=== PATIENT | male | born 1950 | race Caucasian/White ===

== ENCOUNTER → 2016-05-13 | Outpatient (CLI) | payer MEDICARE, OTHER ==
[~2016-05-13] MED LIST: ASPI-496 PO; ATOR80TA75 PO; BIOT5TAB PO; CALC-332 PO; CARV12.52 PO; CARV6.252 PO; CLOP75TA22 PO; DIAZ5TAB PO; FISH OIL OMEGA1 EACH PO; FURO-93 PO; GLIP5TAB10 PO; HYDR1TAB14 PO; INSU100I13 SQ-INSULIN; INSU100V8 SQ; ISOS30TA8 PO; LINA5TAB PO; LIRA0.6P SQ; LIRA0.6P2 SQ; METF10002 PO; MULT1TAB60 PO; NIAC10002 PO; NIAC100035 PO; NITR0.4T SL; NITR0.4T8 SL; OLME5TAB4 PO; OMEG1CAP6 PO; ROSU5TAB PO; SILD50TA PO; TRAM50TA2 PO; TRIA1CAP PO; WHEA1POW5 PO
== END | disposition home or self-care (01) ==
LOC: CFH 16:05
PROVIDERS: ATTEND Internal Medicine Cardiovascular Disease
DX: Z95.810 Presence of automatic (implantable) cardiac defibrillator (principal)
CPT/HCPCS: 71020

== ENCOUNTER 2016-05-24 15:29 | Inpatient (IN) | payer MEDICARE, OTHER ==
[~2016-05-24] VITALS: Ht 198.1 cm; Wt 140.9 kg
[2016-05-24] MEDS ORDERED: SODIUM CHLORIDE FLUSH 10ML SYR IVF ONE (16:30)
[2016-05-24 17:09] LABS: ASPARTATE AMINO TRANSFERASE 274 U/L (15-37); BLOOD UREA NITROGEN 24 mg/dL (7-18)
[2016-05-24] MEDS ORDERED: AMLO5TAB2 PO (18:45)
[2016-05-24] MEDS ORDERED: WHEA1POW5 PO (18:49)
[2016-05-24] MEDS ORDERED: INSU100V13 SQ-INSULIN (18:53)
[2016-05-24] MEDS ORDERED: MULT-6 PO (18:53)
[2016-05-24] MEDS ORDERED: NITR0.4T SL (18:55)
[2016-05-24] MEDS ORDERED: LINA5TAB PO (18:56)
[2016-05-24] MEDS ORDERED: HYDR1TAB14 PO (18:58)
[2016-05-24] MEDS ORDERED: INSULIN REGULAR 100 UNITS/ML, 3ML VIAL SQ-INSULIN ONE (20:00)
[2016-05-24] MEDS ORDERED: INSULIN SINGLE DOSE, ER SQ-INSULIN ONE (20:07)
[2016-05-24] MEDS: CARVEDILOL 12.5 MG TABLET PO SCH (23:00)
[2016-05-24] MEDS ORDERED: ONDANSETRON 2MG/ML, 2ML IVP PRN (23:00)
[2016-05-24] MEDS ORDERED: BISACODYL 10 MG SUPP PR PRN (23:00)
[2016-05-24] MEDS ORDERED: POLYETHYLENE GLYCOL 17 GM PACKET PO PRN (23:00)
[2016-05-24] MEDS ORDERED: DIAZEPAM 5 MG TABLET PO PRN (23:00)
[2016-05-24] MEDS ORDERED: ACETAMINOPHEN PO SCH (23:00)
[2016-05-24] MEDS ORDERED: NITROGLYCERIN 0.4 MG BOTTLE (25 TABS) SL PRN (23:00)
[2016-05-24] MEDS ORDERED: OXYcodone IR 5MG TABLET PO PRN (23:00)
[2016-05-24] MEDS ORDERED: HYDROCODONE BIT PO SCH (23:00)
[2016-05-24] MEDS ORDERED: FUROSEMIDE 20 MG TABLET PO PRN (23:00)
[2016-05-24] MEDS ORDERED: [UNRECOGNIZED DRUG - OTHER] PO SCH (23:00)
[2016-05-24] MEDS: TEMPLATE NON-FORMULARY MED. (Liraglutide (Victoza 3-Pak) 1.8 MG) SQ SCH (23:00)
[2016-05-24] MEDS ORDERED: DOCUSATE 100 MG CAPSULE PO PRN (23:00)
[2016-05-24] MEDS ORDERED: MORPHINE SULFATE 4 MG/ML, 1ML IVPush PRN (23:00)
[2016-05-24] MEDS ORDERED: LINAGLIPTIN MC SCH (23:30)
[2016-05-24] MEDS ORDERED: HYDROCODONE MC SCH (23:30)
[2016-05-24] MEDS ORDERED: LIRAGLUTIDE MC SCH (23:30)
[2016-05-24] MEDS ORDERED: ACETAMINOPHEN MC SCH (23:30)
[2016-05-24] MEDS ORDERED: SODIUM CHLORIDE 0.9% 1,000 ML IV SCH (23:30)
[2016-05-25 00:16] VITALS: BP 171/75
[2016-05-25] MEDS ORDERED: CEFTRIAXONE PMX 1GM/50ML 50 ML IV SCH (00:30)
[2016-05-25] MEDS ORDERED: METRONIDAZOLE PMX 500MG/100ML 100 ML IV SCH (00:30)
[2016-05-25] MEDS: INSULIN DETEMIR 100 UNITS/ML, PEN SQ-INSULIN SCH ×2 (00:46→20:59)
[2016-05-25 03:08] VITALS: BP 147/76
[2016-05-25 05:29] LABS: ASPARTATE AMINO TRANSFERASE 279 U/L (15-37); BLOOD UREA NITROGEN 23 mg/dL (7-18)
[2016-05-25 06:50] VITALS: BP 127/69
[2016-05-25] MEDS ORDERED: DEXTROSE 4 GM TAB.CHEW PO PRN (08:00)
[2016-05-25] MEDS ORDERED: DEXTROSE 50%, 50ML SYRINGE IVPush PRN (08:00)
[2016-05-25] MEDS ORDERED: GLUCAGON 1 MG IM PRN (08:00)
[2016-05-25] MEDS: CARVEDILOL 12.5 MG TABLET PO SCH ×2 (08:25→20:56)
[2016-05-25] MEDS: INSULIN ASPART 100 UNITS/ML, PEN SQ-INSULIN SCH ×4 (08:25→20:58)
[2016-05-25] MEDS: OMEGA-3/FISH OIL CAPSULE PO SCH ×2 (08:26→20:56)
[2016-05-25] MEDS: SODIUM CHLORIDE FLUSH 10ML SYR IVF SCH ×2 (08:26→20:59)
[2016-05-25] MEDS: MULTIVITAMIN 1 TABLET PO SCH (08:27)
[2016-05-25] MEDS: NIACIN 500 MG TABLET.ER PO SCH ×2 (08:27→20:56)
[2016-05-25 12:51] VITALS: BP 119/67
[2016-05-25 16:49] LABS: ANA SCREEN POSITIVE (Negative)
[2016-05-25 17:30] VITALS: BP 157/73
[2016-05-25 20:00] VITALS: BP 121/70
[2016-05-25] MEDS: TEMPLATE NON-FORMULARY MED. (Linagliptin** (Tradjenta**) 5 MG) PO SCH (20:59)
[2016-05-25] MEDS: TEMPLATE NON-FORMULARY MED. (Liraglutide (Victoza 3-Pak) 1.8 MG) SQ SCH (21:15)
[2016-05-26 02:00] VITALS: BP 99/59
[2016-05-26 05:19] LABS: ASPARTATE AMINO TRANSFERASE 409 U/L (15-37); BLOOD UREA NITROGEN 20 mg/dL (7-18)
[2016-05-26 07:05] VITALS: BP 108/65
[2016-05-26] MEDS: CARVEDILOL 12.5 MG TABLET PO SCH ×2 (08:28→19:28)
[2016-05-26] MEDS: MULTIVITAMIN 1 TABLET PO SCH (08:28)
[2016-05-26] MEDS: NIACIN 500 MG TABLET.ER PO SCH (08:28)
[2016-05-26] MEDS: OMEGA-3/FISH OIL CAPSULE PO SCH ×2 (08:29→19:29)
[2016-05-26] MEDS: INSULIN ASPART 100 UNITS/ML, PEN SQ-INSULIN SCH ×4 (08:36→19:37)
[2016-05-26] MEDS: SODIUM CHLORIDE FLUSH 10ML SYR IVF SCH ×2 (10:07→19:28)
[2016-05-26 13:09] VITALS: BP 109/68
[2016-05-26] MEDS: TEMPLATE NON-FORMULARY MED. (Liraglutide (Victoza 3-Pak) 1.8 MG) SQ SCH (19:29)
[2016-05-26] MEDS: INSULIN DETEMIR 100 UNITS/ML, PEN SQ-INSULIN SCH (19:36)
[2016-05-26] MEDS: TEMPLATE NON-FORMULARY MED. (Linagliptin** (Tradjenta**) 5 MG) PO SCH (19:39)
[2016-05-26 20:00] VITALS: BP 117/65
[2016-05-27 01:30] VITALS: BP 123/57
[2016-05-27 05:11] LABS: ASPARTATE AMINO TRANSFERASE 275 U/L (15-37); BLOOD UREA NITROGEN 20 mg/dL (7-18)
[2016-05-27 07:41] VITALS: BP 112/65
[2016-05-27] MEDS: MULTIVITAMIN 1 TABLET PO SCH (08:18)
[2016-05-27] MEDS: CARVEDILOL 12.5 MG TABLET PO SCH (08:18)
[2016-05-27] MEDS: SODIUM CHLORIDE FLUSH 10ML SYR IVF SCH (08:19)
[2016-05-27] MEDS: OMEGA-3/FISH OIL CAPSULE PO SCH (08:20)
[2016-05-27] MEDS: INSULIN ASPART 100 UNITS/ML, PEN SQ-INSULIN SCH ×3 (08:22→16:00)
[2016-05-27 12:06] LABS: ENDOMYSIAL IGA Negative (Negative); IMMUNOGLOBULIN A 370 mg/dL (61-437)
[2016-05-27 14:29] VITALS: BP 118/70
== END 2016-05-27 17:30 | disposition home or self-care (01) | DRG 604 ==
LOC: ED 20:22 → EDIP 21:44 → 3NW 23:22 → DCLOUNGE 05-27 17:19
PROVIDERS: ADMIT Internal Medicine; ATTEND Internal Medicine
PROC: 0T9B70Z Drainage of Bladder with Drainage Device, Via Natural or Artificial Opening (ICD-10-PCS; principal; 2016-05-24)
DX: S30.1XXA Contusion of abdominal wall, initial encounter (principal); N17.0 Acute kidney failure with tubular necrosis; E44.0 Moderate protein-calorie malnutrition; E87.1 Hypo-osmolality and hyponatremia; D62 Acute posthemorrhagic anemia; I13.0 Hypertensive heart and chronic kidney disease with heart failure and stage 1 through stage 4 chronic kidney disease, or unspecified chronic kidney disease; I50.22 Chronic systolic (congestive) heart failure; Z68.34 Body mass index [BMI] 34.0-34.9, adult; N18.3 Chronic kidney disease, stage 3 (moderate); K75.9 Inflammatory liver disease, unspecified; K76.0 Fatty (change of) liver, not elsewhere classified; I25.5 Ischemic cardiomyopathy; D63.8 Anemia in other chronic diseases classified elsewhere; E11.22 Type 2 diabetes mellitus with diabetic chronic kidney disease; E11.65 Type 2 diabetes mellitus with hyperglycemia; E66.9 Obesity, unspecified; E78.5 Hyperlipidemia, unspecified; G47.33 Obstructive sleep apnea (adult) (pediatric); I25.10 Atherosclerotic heart disease of native coronary artery without angina pectoris; I35.0 Nonrheumatic aortic (valve) stenosis; N40.0 Benign prostatic hyperplasia without lower urinary tract symptoms; Z79.4 Long term (current) use of insulin; Z79.82 Long term (current) use of aspirin; Z85.51 Personal history of malignant neoplasm of bladder; Z86.010 Personal history of colon polyps; Z86.74 Personal history of sudden cardiac arrest; Z87.891 Personal history of nicotine dependence; Z90.49 Acquired absence of other specified parts of digestive tract; Z95.0 Presence of cardiac pacemaker; Z95.2 Presence of prosthetic heart valve; Z68.35 Body mass index [BMI] 35.0-35.9, adult; Z88.8 Allergy status to other drugs, medicaments and biological substances
CPT/HCPCS: 36415; 71010; 74176; 76700; 80053; 80061; 81001; 82103; 82390; 82728; 82784; 82962; 83036; 83516; 83690; 83735; 84439; 84443; 85025; 85610; 85730; 86038; 86039; 86255; 86704; 86706; 86708; 86803; 87040; 87086; 87340; 99285; J1815; J7030

== ENCOUNTER 2016-06-22 10:23 | Emergency (ER) | payer MEDICARE, OTHER ==
[~2016-06-22] VITALS: Ht 198.1 cm; Wt 133.4 kg
[~2016-06-22 10:23] MED LIST changes: +AMLO5TAB2 PO; +INSU100V13 SQ-INSULIN; +MULT-6 PO
[2016-06-22] MEDS ORDERED: SODIUM CHLORIDE 0.9% 1,000 ML IV ONE (12:19)
[2016-06-22] MEDS ORDERED: SODIUM CHLORIDE FLUSH 10ML SYR IVF ONE (12:30)
[2016-06-22] MEDS ORDERED: HYDROmorphone 1 MG/ML, 1ML IVPush PRN (12:30)
[2016-06-22] MEDS ORDERED: ONDANSETRON 2MG/ML, 2ML IVPush ONE (12:30)
[2016-06-22] MEDS ORDERED: SODIUM CHLORIDE 0.9% 1,000ML IVBOLUS ONE (12:30)
[2016-06-22] MEDS ORDERED: ONDANSETRON 2MG/ML, 2ML ONE (12:59)
[2016-06-22] MEDS ORDERED: HYDROmorphone 1 MG/ML, 1ML ONE (12:59)
[2016-06-22 13:37] LABS: ASPARTATE AMINO TRANSFERASE 35 U/L (15-37); BLOOD UREA NITROGEN 17 mg/dL (7-18)
[2016-06-22] MEDS ORDERED: ATOR80TA PO (13:55)
[2016-06-22] MEDS ORDERED: ASPI-770 PO (13:55)
[2016-06-22] MEDS ORDERED: AMOX500T PO (13:55)
[2016-06-22] MEDS ORDERED: NIAC500T4 PO (14:06)
[2016-06-22] MEDS ORDERED: OMNIPAQUE 350 MG/ML, 100ML BOTTLE ONE (16:53)
[2016-06-22 18:31] VITALS: BP 152/83
== END 2016-06-22 18:33 | disposition home or self-care (01) ==
LOC: ED 15:34
DX: S30.1XXA Contusion of abdominal wall, initial encounter (principal); E11.9 Type 2 diabetes mellitus without complications; I25.810 Atherosclerosis of coronary artery bypass graft(s) without angina pectoris; I50.9 Heart failure, unspecified; X58.XXXA Exposure to other specified factors, initial encounter; Y93.89 Activity, other specified; Y92.89 Other specified places as the place of occurrence of the external cause; Y99.9 Unspecified external cause status
CPT/HCPCS: 36415; 74177; 80053; 83605; 83690; 84145; 85025; 85610; 87040; 93005; 96361; 96374; 96375; 99285; J1170; J2405; J7030; Q9967

== ENCOUNTER → 2016-11-01 | Outpatient (CLI) | payer MEDICARE, OTHER ==
[~2016-11-01] MED LIST changes: +AMOX500T PO; +ASPI-770 PO; +ATOR-2 PO; +ATOR80TA PO; -ATOR80TA75 PO; -CLOP75TA22 PO; +CLOP75TA52 PO; +NIAC500T4 PO; +NITR0.4T28 SL; -NITR0.4T8 SL
== END | disposition home or self-care (01) ==
LOC: CVU 12:46
PROVIDERS: ATTEND Internal Medicine Cardiovascular Disease
DX: I34.0 Nonrheumatic mitral (valve) insufficiency (principal); I34.8 Other nonrheumatic mitral valve disorders; I51.7 Cardiomegaly; I65.23 Occlusion and stenosis of bilateral carotid arteries; I10 Essential (primary) hypertension; I25.2 Old myocardial infarction; E11.9 Type 2 diabetes mellitus without complications; G47.33 Obstructive sleep apnea (adult) (pediatric); E78.5 Hyperlipidemia, unspecified; Z95.0 Presence of cardiac pacemaker; Z95.2 Presence of prosthetic heart valve; Z95.1 Presence of aortocoronary bypass graft; Z87.891 Personal history of nicotine dependence; Z85.51 Personal history of malignant neoplasm of bladder; Z86.74 Personal history of sudden cardiac arrest; Z98.890 Other specified postprocedural states
CPT/HCPCS: 93306; 93880

== ENCOUNTER → 2017-06-10 | Outpatient (CLI) | payer MEDICARE, OTHER ==
[~2017-06-10] MED LIST changes: -ASPI-770 PO; +ASPI81TA59 PO
== END ==
LOC: CFH 10:30
PROVIDERS: ATTEND Urology
DX: N18.9 Chronic kidney disease, unspecified (principal)
CPT/HCPCS: 76770

== ENCOUNTER 2017-08-05 19:38 | Inpatient (IN) | payer MEDICARE ==
[~2017-08-05] VITALS: Ht 198.1 cm; Wt 137.4 kg
[2017-08-05] MEDS ORDERED: FURO-93 PO (20:12)
[2017-08-05] MEDS ORDERED: FISH OIL (20:12)
[2017-08-05] MEDS ORDERED: MATURE MULTIVITAMIN (20:12)
[2017-08-05] MEDS ORDERED: INVANZ IV (20:12)
[2017-08-05] MEDS ORDERED: ATOR80TA PO (20:12)
[2017-08-05] MEDS ORDERED: LINA5TAB PO (20:12)
[2017-08-05] MEDS ORDERED: NITR0.4T SL (20:12)
[2017-08-05] MEDS ORDERED: DIAZ5TAB PO (20:12)
[2017-08-05] MEDS ORDERED: GLIP5TAB10 PO (20:12)
[2017-08-05] MEDS ORDERED: BIOT5CAP3 PO (20:12)
[2017-08-05] MEDS ORDERED: NIACIN (20:12)
[2017-08-05] MEDS ORDERED: LEVEMIR SQ (20:12)
[2017-08-05] MEDS ORDERED: CARV6.252 PO (20:12)
[2017-08-05] MEDS ORDERED: PROBIOTIC (20:12)
[2017-08-05] MEDS ORDERED: BENEFIBER (20:12)
[2017-08-05] MEDS ORDERED: RIVA15TA PO (20:13)
[2017-08-05] MEDS ORDERED: HYDR1TAB14 PO (20:13)
[2017-08-05] MEDS ORDERED: VICTOZA SQ (20:13)
[2017-08-05] MEDS ORDERED: SILD50TA PO (20:13)
[2017-08-05 20:24] LABS: BASOPHILS # (AUTO) 0.01 x10^3/uL (0-0.1); BASOPHILS % (AUTO) 0 % (0-1); EOSINOPHILS # (AUTO) 0.15 x10^3/uL (0-0.4); EOSINOPHILS % (AUTO) 4 % (1-7); LYMPHOCYTES % (AUTO) 40 % (22-44); MD NO; MEAN CORPUSCULAR HEMOGLOBIN 30.9 pg (27.5-34.5); MEAN CORPUSCULAR HGB CONC 33.5 g/dL (33.2-36.2); MEAN CORPUSCULAR VOLUME 92.2 fL (81-97); MEAN PLATELET VOLUME 7.1 fL (7.4-10.4); MONOCYTES # (AUTO) 0.34 x10^3/uL (0.2-0.8); MONOCYTES % (AUTO) 9 % (2-9); NEUTROPHILS # (AUTO) 1.73 x10^3/uL (1.8-6.8); NEUTROPHILS % (AUTO) 46 % (42-75); PLATELET COUNT 124 x10^3/uL (130-400); RED BLOOD COUNT 4.53 x10^6/uL (4.38-5.82); RED CELL DISTRIBUTION WIDTH 13.3 % (9.4-14.8)
[2017-08-05 20:36] LABS: ANION GAP 6 mmol/L (5-15); CALCIUM 8.3 mg/dL (8.5-10.1); CHLORIDE 107 mmol/L (98-107); INTERNATIONAL NORMALIZED RATIO 1.31 (0.93-1.1); PROTHROMBIN TIME 13.4 Seconds (9.6-11.5)
[2017-08-05] MEDS ORDERED: DIAZEPAM 5 MG TABLET PO PRN (21:00)
[2017-08-05] MEDS ORDERED: DOCUSATE 100 MG CAPSULE PO PRN (21:00)
[2017-08-05] MEDS ORDERED: TEMAZEPAM 15 MG CAPSULE PO PRN (21:00)
[2017-08-05] MEDS ORDERED: ACETAMINOPHEN 325 MG TABLET PO PRN (21:00)
[2017-08-05] MEDS ORDERED: ONDANSETRON 2MG/ML, 2ML IVPush PRN (21:00)
[2017-08-05] MEDS ORDERED: ERTAPENEM 1 GM in SODIUM CHLORIDE 0.9% 50 ML IV SCH (21:00)
[2017-08-05] MEDS: ERTAPENEM 1 GM in SODIUM CHLORIDE 0.9% 50 ML IV SCH (21:35)
[2017-08-05 22:01] VITALS: BP 125/66
[2017-08-06] MEDS: CARVEDILOL 6.25 MG TABLET PO SCH ×3 (00:21→20:43)
[2017-08-06] MEDS: ATORVASTATIN 80 MG TABLET PO SCH ×2 (00:21→20:44)
[2017-08-06] MEDS: LINAGLIPTIN 5 MG TAB PO SCH ×2 (00:21→20:43)
[2017-08-06] MEDS: ENOXAPARIN 150 MG/ML SQ SCH ×3 (00:22→20:53)
[2017-08-06 01:39] VITALS: BP 94/47
[2017-08-06 07:18] VITALS: BP 106/61
[2017-08-06] MEDS: ASPIRIN 81 MG TABLET CHEW PO SCH (07:21)
[2017-08-06] MEDS: FUROSEMIDE 20 MG TABLET PO SCH (07:21)
[2017-08-06] MEDS: INSULIN LISPRO 100 UNITS/ML, PEN SQ-INSULIN SCH ×4 (08:05→20:46)
[2017-08-06 16:00] VITALS: BP 124/76
[2017-08-06] MEDS ORDERED: OMNIPAQUE 350 MG/ML, 100ML BOTTLE ONE (16:33)
[2017-08-06 19:20] VITALS: BP 97/60
[2017-08-06 20:40] VITALS: BP 117/63
[2017-08-06] MEDS: ERTAPENEM 1 GM in SODIUM CHLORIDE 0.9% 50 ML IV SCH (20:46)
[2017-08-07 02:51] VITALS: BP 100/62
[2017-08-07 04:50] LABS: MEAN CORPUSCULAR HEMOGLOBIN 30.8 pg (27.5-34.5); MEAN CORPUSCULAR HGB CONC 33.3 g/dL (33.2-36.2); MEAN CORPUSCULAR VOLUME 92.6 fL (81-97); MEAN PLATELET VOLUME 7.4 fL (7.4-10.4); PLATELET COUNT 112 x10^3/uL (130-400); RED BLOOD COUNT 4.25 x10^6/uL (4.38-5.82); RED CELL DISTRIBUTION WIDTH 13.3 % (9.4-14.8)
[2017-08-07 04:51] LABS: ANION GAP 4 mmol/L (5-15); CALCIUM 8.3 mg/dL (8.5-10.1); CHLORIDE 107 mmol/L (98-107); CREATININE 1.36 mg/dL (0.7-1.3)
[2017-08-07 05:59] LABS: BASOPHILS # (AUTO) 0.01 x10^3/uL (0-0.1); BASOPHILS % (AUTO) 0 % (0-1); EOSINOPHILS # (AUTO) 0.13 x10^3/uL (0-0.4); EOSINOPHILS % (AUTO) 5 % (1-7); LYMPHOCYTES # (AUTO) 1.13 x10^3/uL (1-3.4); LYMPHOCYTES % (AUTO) 47 % (22-44); MD SCAN; MONOCYTES # (AUTO) 0.25 x10^3/uL (0.2-0.8); MONOCYTES % (AUTO) 10 % (2-9); NEUTROPHILS # (AUTO) 0.92 x10^3/uL (1.8-6.8); NEUTROPHILS % (AUTO) 38 % (42-75)
[2017-08-07] MEDS: ENOXAPARIN 150 MG/ML SQ SCH (08:00)
[2017-08-07] MEDS: INSULIN LISPRO 100 UNITS/ML, PEN SQ-INSULIN SCH ×4 (08:00→21:07)
[2017-08-07] MEDS: CARVEDILOL 6.25 MG TABLET PO SCH ×2 (08:01→21:06)
[2017-08-07] MEDS: ASPIRIN 81 MG TABLET CHEW PO SCH (08:01)
[2017-08-07] MEDS: FUROSEMIDE 20 MG TABLET PO SCH (08:01)
[2017-08-07 08:59] VITALS: BP 108/65
[2017-08-07 12:54] VITALS: BP 98/66
[2017-08-07] MEDS: RIVAROXABAN 15 MG TABLET PO SCH (16:38)
[2017-08-07 19:25] VITALS: BP 99/64
[2017-08-07] MEDS: ERTAPENEM 1 GM in SODIUM CHLORIDE 0.9% 50 ML IV SCH (21:00)
[2017-08-07] MEDS: LINAGLIPTIN 5 MG TAB PO SCH (21:06)
[2017-08-07] MEDS: ATORVASTATIN 80 MG TABLET PO SCH (21:06)
[2017-08-08 03:36] VITALS: BP 121/71
[2017-08-08 05:06] LABS: ALANINE AMINOTRANSFERASE 56 U/L (12-78); ALBUMIN 2.3 g/dL (3.4-5.0); ANION GAP 8 mmol/L (5-15); CHLORIDE 106 mmol/L (98-107); CREATININE 1.25 mg/dL (0.7-1.3)
[2017-08-08 05:08] LABS: ALKALINE PHOSPHATASE 176 U/L (45-117); BILIRUBIN,TOTAL 0.7 mg/dL (0.2-1.0); TOTAL PROTEIN 6.2 g/dL (6.4-8.2)
[2017-08-08 05:54] LABS: BASOPHILS % (AUTO) 0 % (0-1); EOSINOPHILS % (AUTO) 4 % (1-7); LYMPHOCYTES # (AUTO) 1.07 x10^3/uL (1-3.4); LYMPHOCYTES % (AUTO) 46 % (22-44); MD SCAN; MEAN CORPUSCULAR HEMOGLOBIN 30.7 pg (27.5-34.5); MEAN CORPUSCULAR HGB CONC 33.2 g/dL (33.2-36.2); MEAN CORPUSCULAR VOLUME 92.7 fL (81-97); MEAN PLATELET VOLUME 7.3 fL (7.4-10.4); MONOCYTES # (AUTO) 0.26 x10^3/uL (0.2-0.8); MONOCYTES % (AUTO) 11 % (2-9); NEUTROPHILS # (AUTO) 0.91 x10^3/uL (1.8-6.8); NEUTROPHILS % (AUTO) 39 % (42-75); PLATELET COUNT 97 x10^3/uL (130-400); RED CELL DISTRIBUTION WIDTH 13.4 % (9.4-14.8)
[2017-08-08] MEDS: INSULIN LISPRO 100 UNITS/ML, PEN SQ-INSULIN SCH ×4 (07:00→21:03)
[2017-08-08 08:00] VITALS: BP 127/78
[2017-08-08] MEDS ORDERED: REGADENOSON 0.4 MG/5 ML SYRINGE ONE (08:18)
[2017-08-08 08:49] LABS: TROPONIN I 0.021 ng/mL (0.000-0.045)
[2017-08-08] MEDS: SENNA/DOCUSATE TABLET PO SCH (09:00)
[2017-08-08] MEDS: ASPIRIN 81 MG TABLET CHEW PO SCH (09:00)
[2017-08-08] MEDS: RIVAROXABAN 15 MG TABLET PO SCH ×2 (11:51→21:02)
[2017-08-08] MEDS: CARVEDILOL 6.25 MG TABLET PO SCH ×2 (11:53→21:02)
[2017-08-08] MEDS: FUROSEMIDE 20 MG TABLET PO SCH (12:06)
[2017-08-08 13:23] VITALS: BP 127/77
[2017-08-08 19:46] VITALS: BP 139/73
[2017-08-08] MEDS: ERTAPENEM 1 GM in SODIUM CHLORIDE 0.9% 50 ML IV SCH (21:00)
[2017-08-08] MEDS: ATORVASTATIN 80 MG TABLET PO SCH (21:02)
[2017-08-08] MEDS: LINAGLIPTIN 5 MG TAB PO SCH (21:02)
[2017-08-09 03:48] VITALS: BP 108/62
[2017-08-09 06:45] LABS: HEMOGLOBIN A1C 10.7 % (4.2-6.3)
[2017-08-09] MEDS: INSULIN LISPRO 100 UNITS/ML, PEN SQ-INSULIN SCH ×4 (07:06→22:10)
[2017-08-09] MEDS: RIVAROXABAN 15 MG TABLET PO SCH (07:06)
[2017-08-09 07:20] VITALS: BP 129/77
[2017-08-09] MEDS: SENNA/DOCUSATE TABLET PO SCH (09:00)
[2017-08-09] MEDS: ASPIRIN 81 MG TABLET CHEW PO SCH (09:00)
[2017-08-09] MEDS: FUROSEMIDE 20 MG TABLET PO SCH (09:00)
[2017-08-09] MEDS: CARVEDILOL 6.25 MG TABLET PO SCH ×2 (10:22→21:51)
[2017-08-09 13:37] VITALS: BP 112/73
[2017-08-09] MEDS ORDERED: RIVAROXABAN 15 MG TABLET PO SCH (17:00)
[2017-08-09 20:00] VITALS: BP 134/86
[2017-08-09] MEDS: ATORVASTATIN 80 MG TABLET PO SCH (21:51)
[2017-08-09] MEDS: LINAGLIPTIN 5 MG TAB PO SCH (21:51)
[2017-08-09] MEDS: INSULIN GLARGINE 100 UNITS/ML, PEN SQ-INSULIN SCH (22:10)
[2017-08-10 02:00] VITALS: BP 110/62
[2017-08-10 04:35] LABS: MEAN CORPUSCULAR HEMOGLOBIN 30.5 pg (27.5-34.5); MEAN CORPUSCULAR HGB CONC 33.2 g/dL (33.2-36.2); MEAN PLATELET VOLUME 7.5 fL (7.4-10.4); PLATELET COUNT 101 x10^3/uL (130-400); RED BLOOD COUNT 4.06 x10^6/uL (4.38-5.82); RED CELL DISTRIBUTION WIDTH 13.2 % (9.4-14.8)
[2017-08-10 04:48] LABS: ALANINE AMINOTRANSFERASE 77 U/L (12-78); ALBUMIN 2.3 g/dL (3.4-5.0); ANION GAP 6 mmol/L (5-15); CALCIUM 7.8 mg/dL (8.5-10.1); CHLORIDE 109 mmol/L (98-107); CREATININE 1.28 mg/dL (0.7-1.3)
[2017-08-10 04:50] LABS: ALKALINE PHOSPHATASE 175 U/L (45-117); BILIRUBIN,TOTAL 0.5 mg/dL (0.2-1.0); TOTAL PROTEIN 6.5 g/dL (6.4-8.2)
[2017-08-10 05:45] LABS: BASOPHILS # (AUTO) 0.01 x10^3/uL (0-0.1); BASOPHILS % (AUTO) 0 % (0-1); EOSINOPHILS # (AUTO) 0.14 x10^3/uL (0-0.4); EOSINOPHILS % (AUTO) 5 % (1-7); LYMPHOCYTES # (AUTO) 1.11 x10^3/uL (1-3.4); LYMPHOCYTES % (AUTO) 43 % (22-44); MD SCAN; MONOCYTES # (AUTO) 0.29 x10^3/uL (0.2-0.8); MONOCYTES % (AUTO) 11 % (2-9); NEUTROPHILS # (AUTO) 1.06 x10^3/uL (1.8-6.8); NEUTROPHILS % (AUTO) 41 % (42-75)
[2017-08-10 07:39] VITALS: BP 134/61
[2017-08-10] MEDS: RIVAROXABAN 20 MG TABLET PO SCH (07:43)
[2017-08-10] MEDS: INSULIN LISPRO 100 UNITS/ML, PEN SQ-INSULIN SCH ×4 (07:45→22:09)
[2017-08-10] MEDS: SENNA/DOCUSATE TABLET PO SCH (09:00)
[2017-08-10] MEDS: CARVEDILOL 6.25 MG TABLET PO SCH ×2 (09:22→22:08)
[2017-08-10 12:34] VITALS: BP 155/81
[2017-08-10 19:52] VITALS: BP 135/80
[2017-08-10] MEDS: ATORVASTATIN 80 MG TABLET PO SCH (22:08)
[2017-08-10] MEDS: LINAGLIPTIN 5 MG TAB PO SCH (22:08)
[2017-08-10] MEDS: INSULIN GLARGINE 100 UNITS/ML, PEN SQ-INSULIN SCH (22:09)
[2017-08-11 02:00] VITALS: BP 124/71
[2017-08-11 05:07] LABS: MEAN CORPUSCULAR HEMOGLOBIN 30.7 pg (27.5-34.5); MEAN CORPUSCULAR HGB CONC 33.4 g/dL (33.2-36.2); MEAN PLATELET VOLUME 7.7 fL (7.4-10.4); PLATELET COUNT 106 x10^3/uL (130-400); RED BLOOD COUNT 4.04 x10^6/uL (4.38-5.82); RED CELL DISTRIBUTION WIDTH 12.9 % (9.4-14.8)
[2017-08-11 05:14] LABS: ALBUMIN 2.5 g/dL (3.4-5.0); ANION GAP 5 mmol/L (5-15); CALCIUM 7.9 mg/dL (8.5-10.1); CHLORIDE 110 mmol/L (98-107)
[2017-08-11 05:16] LABS: CREATININE 1.23 mg/dL (0.7-1.3)
[2017-08-11 05:54] LABS: MD YES
[2017-08-11 05:57] LABS: <RBC MORPHOLOGY> NORMAL; BAND#(MANUAL) 0.04 x10^3/uL; BANDS%(MANUAL) 2 % (0-7); EOS#(MANUAL) 0.02 x10^3/uL (0.0-0.4); EOS% (MANUAL) 1 % (1-7); LYMPHS% (MANUAL) 43 % (22-44); MONOS#(MANUAL) 0.06 x10^3/uL (0.3-2.7); MONOS% (MANUAL) 3 % (2-9); SEG#(MANUAL) 1.07 x10^3/uL (1.8-6.8); SEGS% (MANUAL) 51 % (42-75)
[2017-08-11 05:58] LABS: <PLATELET ESTIMATE> DECREASED; <PLT MORPHOLOGY> NORMAL PLT MORPH
[2017-08-11 07:22] VITALS: BP 155/83
[2017-08-11] MEDS: INSULIN LISPRO 100 UNITS/ML, PEN SQ-INSULIN SCH ×2 (08:01→11:17)
[2017-08-11] MEDS: RIVAROXABAN 20 MG TABLET PO SCH (08:02)
[2017-08-11] MEDS ORDERED: FUROSEMIDE 20 MG TABLET PO SCH (09:00)
[2017-08-11] MEDS: SENNA/DOCUSATE TABLET PO SCH (09:00)
[2017-08-11] MEDS: CARVEDILOL 6.25 MG TABLET PO SCH (09:13)
[2017-08-11 13:39] VITALS: BP 138/67
[2017-08-11] MEDS ORDERED: CEPH-376 PO (13:47)
[2017-08-11] MEDS ORDERED: RIVA20TA PO (13:47)
[2017-08-11] MEDS ORDERED: CEPHALEXIN 500 MG CAPSULE PO SCH (16:00)
== END 2017-08-11 15:39 | disposition home or self-care (01) | DRG 314 ==
LOC: ED 20:45 → EDIP 20:50 → 3NW 21:47 → DCLOUNGE 08-11 15:25
PROVIDERS: ADMIT Internal Medicine; ATTEND Internal Medicine
PROC: 02PYX3Z Removal of Infusion Device from Great Vessel, External Approach (ICD-10-PCS; principal; 2017-08-08)
DX: T82.594A Other mechanical complication of infusion catheter, initial encounter (principal); E43 Unspecified severe protein-calorie malnutrition; I82.621 Acute embolism and thrombosis of deep veins of right upper extremity; I50.22 Chronic systolic (congestive) heart failure; D61.818 Other pancytopenia; I13.0 Hypertensive heart and chronic kidney disease with heart failure and stage 1 through stage 4 chronic kidney disease, or unspecified chronic kidney disease; I82.721 Chronic embolism and thrombosis of deep veins of right upper extremity; I25.10 Atherosclerotic heart disease of native coronary artery without angina pectoris; N18.9 Chronic kidney disease, unspecified; Y83.9 Surgical procedure, unspecified as the cause of abnormal reaction of the patient, or of later complication, without mention of misadventure at the time of the procedure; Y92.89 Other specified places as the place of occurrence of the external cause; D63.8 Anemia in other chronic diseases classified elsewhere; E11.22 Type 2 diabetes mellitus with diabetic chronic kidney disease; E11.65 Type 2 diabetes mellitus with hyperglycemia; E66.9 Obesity, unspecified; Z68.35 Body mass index [BMI] 35.0-35.9, adult; E78.5 Hyperlipidemia, unspecified; G47.33 Obstructive sleep apnea (adult) (pediatric); I25.2 Old myocardial infarction; I25.5 Ischemic cardiomyopathy; I34.0 Nonrheumatic mitral (valve) insufficiency; I35.0 Nonrheumatic aortic (valve) stenosis; I44.7 Left bundle-branch block, unspecified; K73.9 Chronic hepatitis, unspecified; Y71.2 Prosthetic and other implants, materials and accessory cardiovascular devices associated with adverse incidents; Z16.11 Resistance to penicillins; Z79.01 Long term (current) use of anticoagulants; Z79.2 Long term (current) use of antibiotics; Z79.4 Long term (current) use of insulin; Z82.49 Family history of ischemic heart disease and other diseases of the circulatory system; Z83.3 Family history of diabetes mellitus; Z85.51 Personal history of malignant neoplasm of bladder; Z86.74 Personal history of sudden cardiac arrest; Z87.891 Personal history of nicotine dependence; Z90.49 Acquired absence of other specified parts of digestive tract; Z95.1 Presence of aortocoronary bypass graft; Z95.2 Presence of prosthetic heart valve
CPT/HCPCS: 36415; 71275; 74176; 76604; 76700; 78452; 80048; 80053; 82040; 82172; 82247; 82962; 82977; 83010; 83036; 83735; 83883; 84100; 84460; 84484; 85025; 85610; 85730; 86706; 86803; 87070; 87205; 87340; 93005; 93017; 99285; C8929; J1650; J2785; Q9967; A9502; C9898; J1815

== ENCOUNTER → 2017-10-06 | Outpatient (CLI) | payer MEDICARE ==
[~2017-10-06] MED LIST changes: +BENEFIBER; +BIOT5CAP3 PO; +CEPH-376 PO; +FISH OIL; +INVANZ IV; +LEVEMIR SQ; +MATURE MULTIVITAMIN; +NIACIN; +PROBIOTIC; +RIVA15TA PO; +RIVA20TA PO; +VICTOZA SQ
== END | disposition home or self-care (01) ==
LOC: CVU 10:27
PROVIDERS: ATTEND Internal Medicine Cardiovascular Disease
DX: I82.621 Acute embolism and thrombosis of deep veins of right upper extremity (principal); E11.9 Type 2 diabetes mellitus without complications
CPT/HCPCS: 93971

== ENCOUNTER 2017-10-14 08:49 | Day surgery (SDC) | payer MEDICARE ==
[~2017-10-14] VITALS: Ht 198.1 cm; Wt 145.4 kg
[~2017-10-14 08:49] MED LIST changes: -AMLO5TAB2 PO; +AMLO5TAB7 PO
[2017-10-14 09:30] VITALS: BP 125/81
[2017-10-14] MEDS ORDERED: LIDOCAINE-MPF 2%, 2ML ONE (10:35)
[2017-10-14] MEDS ORDERED: OMNIPAQUE 350 MG/ML, 100ML BOTTLE ONE (10:57)
== END 2017-10-14 17:00 | disposition home or self-care (01) ==
LOC: OUT 08:49 → EDSTATUS 11:00 → OUT 17:00
PROVIDERS: ATTEND Nurse Practitioner
DX: K65.1 Peritoneal abscess (principal); I25.10 Atherosclerotic heart disease of native coronary artery without angina pectoris; G47.30 Sleep apnea, unspecified; Z95.1 Presence of aortocoronary bypass graft; Z86.718 Personal history of other venous thrombosis and embolism; Z95.810 Presence of automatic (implantable) cardiac defibrillator
CPT/HCPCS: 74177; Q9967; J3490

== ENCOUNTER → 2017-12-27 | Outpatient (CLI) | payer MEDICARE | END | disposition home or self-care (01) | LOC: CFH 08:02 | PROVIDERS: ATTEND Internal Medicine Gastroenterology | DX: Z02.9 Encounter for administrative examinations, unspecified (principal) ==

== ENCOUNTER → 2017-12-27 | Outpatient (CLI) | payer MEDICARE ==
[~2017-12-27] MED LIST changes: +OMNIPAQUE 350 MG/ML, 100ML BOTTLE ONE
== END | disposition home or self-care (01) ==
LOC: CFH 08:07
PROVIDERS: ATTEND Internal Medicine Gastroenterology
DX: K76.9 Liver disease, unspecified (principal); K57.30 Diverticulosis of large intestine without perforation or abscess without bleeding; K65.1 Peritoneal abscess; E11.9 Type 2 diabetes mellitus without complications
CPT/HCPCS: 74178; Q9967

== ENCOUNTER 2018-01-12 07:08 | Day surgery (SDC) | payer MEDICARE ==
[~2018-01-12 07:08] MED LIST changes: +AMLO-150 PO; -AMLO5TAB7 PO; -OMNIPAQUE 350 MG/ML, 100ML BOTTLE ONE
== END 2018-01-12 17:00 | disposition home or self-care (01) ==
LOC: RAD 07:08
PROVIDERS: ATTEND Internal Medicine Infectious Disease
DX: L02.211 Cutaneous abscess of abdominal wall (principal)
CPT/HCPCS: 20501; 76080

== ENCOUNTER 2018-08-29 09:12 | Outpatient (CLI) | payer MEDICARE ==
[~2018-08-29 09:12] MED LIST changes: -NITR0.4T SL; +NITR0.4T41 SL
== END 2018-08-29 23:59 | disposition home or self-care (01) ==
LOC: CVU 09:12 → CFH 23:59
PROVIDERS: ATTEND Physician Assistant Medical
DX: I34.0 Nonrheumatic mitral (valve) insufficiency (principal); I65.21 Occlusion and stenosis of right carotid artery; K75.4 Autoimmune hepatitis; K76.89 Other specified diseases of liver; Z90.49 Acquired absence of other specified parts of digestive tract; Z95.4 Presence of other heart-valve replacement
CPT/HCPCS: 76700; 93880; C8929; Q9957

== ENCOUNTER 2018-09-05 15:46 | Outpatient (CLI) | payer MEDICARE ==
[~2018-09-05 15:46] MED LIST changes: -HYDR1TAB14 PO; +HYDR1TAB15 PO
[2018-10-17] MEDS ORDERED: ASPI-496 PO (21:47)
[2018-10-17] MEDS ORDERED: AMLO10TA8 PO (21:47)
[2018-10-17] MEDS ORDERED: FURO-93 PO (21:47)
[2018-10-17] MEDS ORDERED: INSU100I18 SC (21:47)
[2018-10-17] MEDS ORDERED: INSU100V35 SC (21:52)
[2018-10-17] MEDS ORDERED: SEMA1PEN SC (21:52)
[2018-10-17] MEDS ORDERED: DAPA1TAB4 PO (21:52)
[2018-10-17] MEDS ORDERED: CLOP75TA52 PO (21:52)
[2018-10-17] MEDS ORDERED: METH500T97 PO (21:52)
[2018-10-17] MEDS ORDERED: AMOX-291 PO (23:35)
[2018-10-17] MEDS ORDERED: [UNRECOGNIZED DRUG - CODE] SC (23:35)
[2018-10-19] MEDS ORDERED: ASPI-496 PO (18:26)
[2018-10-19] MEDS ORDERED: CLOP75TA52 PO ×2 (18:26)
[2018-10-19] MEDS ORDERED: CARV3.122 PO (18:26)
[2018-10-20] MEDS ORDERED: CEFD300C37 PO (12:06)
== END 2018-09-05 23:59 | disposition home or self-care (01) ==
LOC: CARD 15:46
PROVIDERS: ATTEND Internal Medicine Cardiovascular Disease
DX: Z02.9 Encounter for administrative examinations, unspecified (principal)

== ENCOUNTER 2019-09-11 11:58 | Outpatient (CLI) | payer MEDICARE ==
[~2019-09-11 11:58] MED LIST changes: +AMLO10TA8 PO; +AMOX-291 PO; +CARV3.122 PO; +CEFD300C37 PO; +DAPA1TAB4 PO; +INSU100I18 SC; +INSU100V35 SC; +METH500T97 PO; +MULT-449 PO; -MULT1TAB60 PO; +NIAC-17 PO; -NIAC500T4 PO; +SEMA1PEN SC; +[UNRECOGNIZED DRUG - CODE] SC
== END 2019-09-11 23:59 | disposition home or self-care (01) ==
LOC: CVU 11:58
PROVIDERS: ATTEND Internal Medicine Cardiovascular Disease
DX: I34.0 Nonrheumatic mitral (valve) insufficiency (principal); Z86.14 Personal history of Methicillin resistant Staphylococcus aureus infection; Z95.1 Presence of aortocoronary bypass graft; Z95.810 Presence of automatic (implantable) cardiac defibrillator
CPT/HCPCS: 93306; 93356

== ENCOUNTER 2019-10-28 14:03 | Emergency (ER) | payer MEDICARE ==
[~2019-10-28] VITALS: Ht 195.6 cm; Wt 125.0 kg
[2019-10-28 15:38] LABS: BASOPHILS % (AUTO) 0 % (0-1); EOSINOPHILS # (AUTO) 0.05 x10^3/uL (0-0.4); EOSINOPHILS % (AUTO) 2 % (1-7); LYMPHOCYTES # (AUTO) 0.67 x10^3/uL (1-3.4); LYMPHOCYTES % (AUTO) 21 % (22-44); MD NO; MEAN CORPUSCULAR HEMOGLOBIN 23.2 pg (27.5-34.5); MEAN CORPUSCULAR HGB CONC 30.6 g/dL (33.2-36.2); MEAN PLATELET VOLUME 6.9 fL (7.4-10.4); MONOCYTES # (AUTO) 0.23 x10^3/uL (0.2-0.8); MONOCYTES % (AUTO) 7 % (2-9); NEUTROPHILS # (AUTO) 2.28 x10^3/uL (1.8-6.8); NEUTROPHILS % (AUTO) 70 % (42-75); PLATELET COUNT 213 x10^3/uL (130-400); RED BLOOD COUNT 4.43 x10^6/uL (4.38-5.82); RED CELL DISTRIBUTION WIDTH 16.2 % (9.4-14.8)
[2019-10-28 15:39] LABS: ALANINE AMINOTRANSFERASE 19 U/L (12-78); ALBUMIN 3.6 g/dL (3.4-5.0); ANION GAP 6 mmol/L (5-15); CALCIUM 9.1 mg/dL (8.5-10.1); CHLORIDE 109 mmol/L (98-107)
[2019-10-28 15:43] LABS: ALKALINE PHOSPHATASE 88 U/L (45-117); BILIRUBIN,TOTAL 0.3 mg/dL (0.2-1.0); TOTAL PROTEIN 8.1 g/dL (6.4-8.2); TROPONIN I < 0.015 ng/mL (0.000-0.045)
[2019-10-28 16:43] VITALS: BP 145/58
--- NOTE | 2019-10-28 16:43 | NUR ---
MD IS BEDSIDE FOR RE CHECK
== END 2019-10-28 17:30 | disposition home or self-care (01) ==
LOC: ED 16:23
DX: R42 Dizziness and giddiness (principal); R94.31 Abnormal electrocardiogram [ECG] [EKG]; E11.9 Type 2 diabetes mellitus without complications; I25.2 Old myocardial infarction; I25.10 Atherosclerotic heart disease of native coronary artery without angina pectoris; Z95.1 Presence of aortocoronary bypass graft; Z95.0 Presence of cardiac pacemaker
CPT/HCPCS: 36415; 70450; 80053; 84484; 85025; 93005; 99285